=== PATIENT | male | born 1980 | race Caucasian/White ===

== ENCOUNTER 2020-11-02 19:13 | Inpatient (IN) | payer MEDICARE, MEDICAID, SELFPAY ==
[2020-11-02 19:13] VITALS: BP 113/66; PULSE 78; RESP 18; TEMP 35.2; O2SAT 97; BMI 31.2
--- NOTE | 2020-11-02 19:51 | CT_ITS ---
HISTORY: abd pain TECHNIQUE: Helically acquired images were obtained of the abdomen and pelvis following the intravenous administration of 100 ML of Isovue-370 Iodinated contrast. 2D reformats. No oral contrast was administered. A radiation dose optimization technique was used for this scan. COMPARISON: March 06, 2017 FINDINGS: # of images incl. paperwork: 413 LUNG BASES: Scarring is minimal within the root left lung base and about the diaphragmatic hernia in this patient that has had a large gastric hernia and left hemidiaphragm repair CT abdomen: Bones are unremarkable. The gallbladder is distended. There is mild intra-and extrahepatic biliary ductal dilatation. Just above the pancreatic head the common bile duct is dilated to 8 mm. Liver, spleen, pancreas, and adrenal glands, are normal. The kidneys are normal. The aorta is normal. CT pelvis: No ascites is present. The appendix is normal. Series 2 image 77. The prostate gland is not enlarged. The bladder is decompressed. Bowel-gas pattern is normal. CT/Abdomen/Pelvis W IV Cont ONLY IMPRESSION: Previous left hemidiaphragm repair. Some gastric stapling. Distended gallbladder with biliary ductal dilatation. Individualized dose optimization techniques were used for this CT. at 2117 Reported and signed by: Gonzalo Schwartz MD Electronically Signed: Gonzalo Schwartz MD at 21:16 EDT Tel , Service support ,
--- NOTE | 2020-11-02 19:53 | ED.VISSUMM ---
- ER Visit Summary Date of Service: 11/02/20 Chief Complaint: Epigastric abdominal pain History of Present Illness: The patient is a 40 M Struve hiatal hernia with 3 prior surgeries and a prior episode where he was nausea and vomiting to the point that his hiatal hernia slid up and was chest and causing collapse of his lung. He is also had esophageal dilatation. Patient has chronic abdominal pain all the time. It worsened tonight associated with more nausea and vomiting. He denies any fever. He denies any hematemesis or melena. He denies any chills or dysuria. This is the same pain he normally has just worse. Physical Examination: Middle-aged male complaining of pain in his epigastric region. Vital signs are stable and afebrile. H EENT exam unremarkable. Neck nontender. Lungs clear to auscultation bilaterally. Heart regular rhythm no murmur. Abdomen soft nondistended normal bowel sounds. Tender in epigastric region. Right upper and right lower quadrants are unremarkable. No signs of obstruction. Soft with positive bowel sounds. Moving all 4 extremities. No edema. Neurologically is awake alert with no focal motor deficits. Test Results: CBC showed an elevated white count of 14,000. Hemoglobin 13 no bands chemistries unremarkable normal creatinine gap. Liver enzymes elevated lipase 307 amylase normal at 84. CT abdomen pelvis with IV contrast shows left hemidiaphragm repair with prior gastric stapling there is an acutely distended gallbladder with biliary ductal dilatation. Ultrasound is currently pending. Emergency Department Course and Treatment: Patient with epigastric abdominal pain with significant pathology in the past including pancreatitis and issues with hiatal hernia. Treated with IV fentanyl and Zofran. He is allergic to Dilaudid and morphine. Labs and CT being obtained. Treatment Plan: Patient received additional doses of medication and was started on IV Zosyn. Spoken to general surgery Dr. Cosme Zapata and he is in the emergency department evaluating the patient at this time. Ultrasound is pending. Disposition: admission Impression: Acute epigastric abdominal pain Acute biliary biliary ductal dilatation with elevated liver enzymes This note was generated with [employer] dictation software. It may contain incorrect words, spelling, and punctuation that were not noted in review of the chart prior to signing ED Disposition - Plan for ED Patient: Referrals: Ac Johnson III, MD [Primary Care Provider] -
[2020-11-02 20:06] LABS: Absolute Neutrophil Count 12.1 X10^3/uL (2.0-7.7); Basophil# 0.03 X10^3/uL; Basophil% 0.2 % (0-1); Eosinophil# 0.02 X10^3/uL; Eosinophils% 0.1 % (0-5); Hematocrit 40.1 % (40-54); Hemoglobin 13.9 g/dL (13.0-16.5); Lymphocyte % 8.4 % (19-41); Mean Corp Hgb Conc 34.7 g/dL (32-36); Mean Corpuscular Hgb 31.7 pg (27.0-32.0); Mean Corpuscular Volume 91.3 fL (80-94); Mean Platelet Vol. 10.6 fl (6.2-12.0); NRBC Flagged by Analyzer 0 % (0-5); Neutrophil # 12.06 X10^3/uL (2.7-7.7); Platelet Count 270 K/mm3 (150-450); RBC Distribution Width CV 11.9 % (11.6-14.6); RBC Distribution Width SD 40.2 fl (35.1-43.9); Red Blood Count 4.39 M/mm3 (4.6-6.2); White Blood Count 14.4 K/mm3 (4.4-11.0)
[2020-11-02] MEDS: 0.9% Normal Saline 1,000 ML 1000 ML IV (20:10)
[2020-11-02] MEDS: fentaNYL 100 MCG/2 ML Ampul 50 MCG IV ×2 (20:11→21:54)
[2020-11-02] MEDS: Ondansetron 4 MG/2 ML Vial IV (20:11)
[2020-11-02 20:28] LABS: ALB/GLOB Ratio 1.1 RATIO (0.9-2.4); AST(SGOT) 829 U/L (15-37); Alanine Aminotransfer ALT/SGPT 455 U/L (16-61); Albumin, Serum 3.9 g/dL (3.2-5.0); Alkaline Phosphatase 134 U/L (45-117); Amylase 84 U/L (25-115); Anion Gap 6 (5-15); BUN 13 mg/dL (7-18); BUN/Creat Ratio 12.3 RATIO (10-20); Chloride 107 mmol/L (98-107); Creatinine, Serum 1.06 mg/dL (0.70-1.30); EST Glomerular Filtration Rate 83 mL/min (>60); Est Glom Filt Rate - Afr Amer 100 mL/min (>60); Estimated Creatinine Clearance 81.39 ml/min; Globulin 3.4 g/dL (2.2-4.2); Glucose 154 mg/dL (74-106); Lipase 307 U/L (73-393); Potassium 4.2 mmol/L (3.5-5.1); Protein, Total 7.3 g/dL (6.4-8.2); Sodium Level 140 mmol/L (136-145)
--- NOTE | 2020-11-02 21:50 | US_ITS ---
HISTORY: abd pain and elevated liver enzymes TECHNIQUE: Castellanos scale and color doppler imaging was performed of the pancreas, liver, and gallbladder. COMPARISON: CT scan of the abdomen and pelvis from just over an hour earlier. FINDINGS: # of images incl. paperwork: 134 Liver is normal in size and appearance. Multiple gallstones are present within the gallbladder lumen. The gallbladder is distended. Trace pericholecystic fluid No gallbladder wall thickening or biliary dilatation. Gallbladder wall measures 3 mm. Common bile duct measures 5 mm. Choledocholithiasis is suspected Tenderness upon insonation the gallbladder. Visualized pancreas is normal in appearance. Right kidney is normal in size and appearance. Hepatopedal flow is present within the central portal vein. US/Gallbladder IMPRESSION: Gallstones, pericholecystic fluid, and pain upon insonation of the gallbladder consistent with acute cholecystitis. at 2256 Reported and signed by: Gonzalo Schwartz MD Electronically Signed: Gonzalo Schwartz MD at 22:55 EDT Tel , Service support ,
[2020-11-02 21:55] VITALS: BP 108/69; PULSE 66; RESP 16; O2SAT 98
--- NOTE | 2020-11-02 22:38 | PCM.HP.STD ---
Problem List (1) Obstructive jaundice Status: Acute (2) Cholecystitis Status: Acute History of Present Illness Date of Admission: 11/02/20 The patient is a 40 year old M reports he has been having abdominal pain for years. He says that this evening he started having nausea and vomiting and worsening of pain and feeling like it was turned up to 11. The pain is in the epigastric region does not radiate. He is having nausea and vomiting with no blood in his vomit. The patient denies any fevers or chills. The patient also is scheduled for EGD soon due to dysphagia. Patient has had multiple gastric surgeries in the past Past Medical History Past Medical History (Chronic Problems): Chronic Problems Depression (Chronic) Hypertension (Chronic) Hiatal hernia (Chronic) Allergies bee venom protein (honey bee) Allergy (Verified 11/02/20 19:15) Anaphylaxis hydromorphone [From Dilaudid] Allergy (Verified 11/02/20 19:15) Hives morphine Allergy (Verified 11/02/20 19:15) Hives Home Medications: Ambulatory Orders Medication Instructions Recorded Albuterol Sulfate [Ventolin Hfa] 2 inhaler PO PRN PRN 03/06/17 Escitalopram Oxalate [Lexapro] 20 mg PO DAILY 03/06/17 Gabapentin [Neurontin] 600 mg PO TIDCM 03/06/17 [place] 10-325 Tablet 1 tab PO Q6H PRN 03/06/17 Pantoprazole Sodium [Protonix] 40 mg PO DAILY 03/06/17 Tizanidine HCl [Zanaflex] 4 mg PO Q8H PRN 03/06/17 cycloBENZAPRine HCl [Flexeril] 10 mg PO BID PRN 03/06/17 traZODone [Desyrel] 150 mg PO QHS 03/06/17 Surgical History: - - Hiatal hernia surgery with revision. Smoking Status: Former smoker - *Family History Maternal History Items: - - Unable to obtain as the patient is currently confused. Review of Systems Constitutional: Denies: Anorexia, Chills, Fever HEENT: Reports: Dysphasia Cardiovascular: Denies: Chest Pain Respiratory: Denies: Cough, Shortness of Breath Gastrointestinal: Reports: Abdominal Pain, Nausea, Vomiting. Denies: Constipation, Diarrhea Genitourinary: Denies: Frequency Skin: Denies: Jaundice Hematologic/ Lymphatic: Reports: Anemia VTE Information - Inpt Only VTE Present on Admission: No VTE Mechan Device Prophylaxis: SCD's - Physical Exam Vitals/I&O's: Vital Signs Temp Pulse Resp BP Pulse Ox 95.3 F L 66 16 108/69 98 11/02/20 19:13 11/02/20 21:55 11/02/20 21:55 11/02/20 21:55 11/02/20 21:55 Oxygen Delivery Method Room Air Weight: 188 lb Body Mass Index (BMI) 31.2 Intake and Output for Last 24 Hours 10/31/20 11/01/20 11/02/20 23:59 23:59 23:59 Intake Total 1000 / 1000 Balance 1000 / 1000 General: Alert, Oriented x3 Neck: No JVD Lungs: Normal air movement Cardiovascular: Regular rate, Regular Rhythm Abdomen: Soft, Non-Distended, Tender - Tender in the epigastric region with no guarding or rebound Skin: No rashes Musculoskeletal: No Muscle Wasting Neurological: Cranial nerves II-XII grossly intact Psych/Mental Status: Normal Affect Laboratory Results 11/02/20 20:00: WBC 14.4 H, RBC 4.39 L, Hgb 13.9, Hct 40.1, MCV 91.3, MCH 31.7, MCHC 34.7, RDW Std Deviation 40.2, RDW Coeff of Marisel 11.9, Plt Count 270, MPV 10.6, Immature Gran % (Auto) 0.300, Neut % (Auto) 84.0 H, Lymph % (Auto) 8.4 L, Harmon % (Auto) 7.0, Eos % (Auto) 0.1, Baso % (Auto) 0.2, Absolute Neuts (auto) 12.1 H, Absolute Lymphs (auto) 1.20, Nucleated RBC % 0 11/02/20 20:00: Sodium 140, Potassium 4.2, Chloride 107, Carbon Dioxide 27.0, Anion Gap 6, BUN 13, Creatinine 1.06, Estim Creat Clear Calc 81.39, Est GFR (MDRD) Af Amer 100, Est GFR (MDRD) Non-Af 83, BUN/Creatinine Ratio 12.3, Glucose 154 H, Calcium 9.0, Total Bilirubin 1.50 H, AST 829 H, ALT 455 H, Alkaline Phosphatase 134 H, Total Protein 7.3, Albumin 3.9, Globulin 3.4, Albumin/Globulin Ratio 1.1, Amylase 84, Lipase 307 Clinical Impression(s) from Imaging Studies Abdomen/Pelvis CT 11/02/20 19:51 IMPRESSION: Previous left hemidiaphragm repair. Some gastric stapling. Distended gallbladder with biliary ductal dilatation. Individualized dose optimization techniques were used for this CT. at 2117 Reported and signed by: Gonzalo Schwartz MD Electronically Signed: Gonzalo Schwartz MD at 21:16 EDT Tel , Service support , Current Medications Piperacillin Sod/Tazobactam (Sod 4.5 gm/ Sodium Chloride) 100 mls @ 200 mls/hr IV X1 ONE Stop: 11/02/20 22:42 Assessment/Plan All Active Problems Obstructive jaundice (Acute) Cholecystitis (Acute) Intractable nausea and vomiting (Acute) Pancreatitis, acute (Acute) 40-year-old male with obstructive jaundice and cholelithiasis with possible acute cholecystitis 1. The patient has elevated liver enzymes as well as an elevated white count. Ultrasound revealed thickened gallbladder wall with gallstones. It also appeared that he had gallstones in the common bile duct. The patient did have dilation of the common duct on CT scan. I believe the patient has choledocholithiasis with obstruction and possible acute cholecystitis. I discussed this with him in detail. I discussed this with his as well. I went over the imaging and the labs with them both. 2. The patient has a history of several gastric surgeries due to incarcerated hiatal hernia. The patient has had a sleeve gastrectomy. The patient is scheduled for EGD with dilation soon due to dysphagia. Apparently he had a recent swallow study showing stenosis. I discussed admitting the patient and starting him on antibiotics and plan for EGD and ERCP tomorrow. I discussed EGD and possible dilation as well as ERCP with possible stent placement. I discussed the risks of ERCP and EGD including but not limited to bleeding, infection, perforation of the esophagus, perforation of bowel or bile duct, pancreatitis. The patient understands the risks and is when to proceed. 3. I will admit the patient and start his home occasions as well as antibiotics. I did discuss the need for subsequent laparoscopic cholecystectomy. Cosme Zapata MD Pager: [facility] [address] [place] [address] [address] [phone] Office:
[2020-11-02 22:42] VITALS: BP 109/66; PULSE 75; RESP 16; TEMP 36.8; O2SAT 95
[2020-11-02 23:14] VITALS: BMI 31.4
[2020-11-02 23:24] VITALS: BMI 31.4
[2020-11-02] MEDS: fentaNYL 100 MCG/2 ML Ampul IV (23:44)
[2020-11-02] MEDS: 0.9% Normal Saline 1,000 ML 125 ML IV (23:46)
[2020-11-02 23:47] VITALS: BP 114/82; PULSE 75; RESP 16; TEMP 36.5; O2SAT 97
[2020-11-03] VITALS (16 sets, daily range): BP systolic 93–122; BP diastolic 51–80; PULSE 54–85; RESP 16–18; TEMP 36–36.8; O2SAT 92–98; BMI 31.4
[2020-11-03] MEDS: fentaNYL 100 MCG/2 ML Ampul IV ×7 (02:10→20:19)
--- NOTE | 2020-11-03 04:10 | EKG12_ITS ---
Test Reason : AM EKG Blood Pressure : / mmHG Vent. Rate : 057 BPM Atrial Rate : 057 BPM P-R Int : 174 ms QRS Dur : 096 ms QT Int : 424 ms P-R-T Axes : 017 063 027 degrees QTc Int : 412 ms Sinus bradycardia Otherwise normal ECG When compared with ECG of 06-MAR-2017 19:33, Vent. rate has decreased BY 90 BPM Criteria for Septal infarct are no longer Present ST no longer depressed in Inferior leads T wave amplitude has increased in Lateral leads Confirmed by STARR DOUGLAS, ANANYA ([id number]), editor department DIYA HERRERA ([id number]) on 11/05/2020 8:30:14 AM Referred By: [facility] Confirmed By:KAMERON CLEMENTS MD
[2020-11-03] MEDS: Ondansetron 4 MG/2 ML Vial IV ×2 (05:13→15:58)
[2020-11-03 07:45] LABS: Absolute Lymphocyte Count 1.54 X10^3/uL (0.83-4.51); Absolute Neutrophil Count 3.2 X10^3/uL (2.0-7.7); Basophil# 0.03 X10^3/uL; Basophil% 0.5 % (0-1); Eosinophil# 0.09 X10^3/uL; Eosinophils% 1.6 % (0-5); Hematocrit 37.6 % (40-54); Hemoglobin 12.3 g/dL (13.0-16.5); Lymphocyte # 1.54 X10^3/ul (0.83-4.51); Lymphocyte % 27.7 % (19-41); Mean Corp Hgb Conc 32.7 g/dL (32-36); Mean Corpuscular Hgb 30.4 pg (27.0-32.0); Mean Corpuscular Volume 92.8 fL (80-94); Mean Platelet Vol. 11.1 fl (6.2-12.0); Monocyte% 12.6 % (0-10); NRBC Flagged by Analyzer 0 % (0-5); Neutrophil # 3.18 X10^3/uL (2.7-7.7); Neutrophil % 57.4 % (47-70); Platelet Count 232 K/mm3 (150-450); RBC Distribution Width CV 12.4 % (11.6-14.6); RBC Distribution Width SD 42.9 fl (35.1-43.9); Red Blood Count 4.05 M/mm3 (4.6-6.2); White Blood Count 5.6 K/mm3 (4.4-11.0)
[2020-11-03 08:28] LABS: ALB/GLOB Ratio 1.2 RATIO (0.9-2.4); AST(SGOT) 1239 U/L (15-37); Alanine Aminotransfer ALT/SGPT 941 U/L (16-61); Albumin, Serum 3.4 g/dL (3.2-5.0); Alkaline Phosphatase 141 U/L (45-117); Anion Gap 5 (5-15); BUN 8 mg/dL (7-18); BUN/Creat Ratio 8.4 RATIO (10-20); Calcium,Total 8.7 mg/dL (8.5-10.1); Chloride 109 mmol/L (98-107); Creatinine, Serum 0.95 mg/dL (0.70-1.30); EST Glomerular Filtration Rate 93 mL/min (>60); Est Glom Filt Rate - Afr Amer 113 mL/min (>60); Estimated Creatinine Clearance 90.81 ml/min; Globulin 2.9 g/dL (2.2-4.2); Glucose 88 mg/dL (74-106); Lipase 200 U/L (73-393); Potassium 4.2 mmol/L (3.5-5.1); Protein, Total 6.3 g/dL (6.4-8.2); Sodium Level 143 mmol/L (136-145)
[2020-11-03] MEDS: 0.9% Normal Saline 1,000 ML 125 ML IV ×2 (09:32→14:50)
--- NOTE | 2020-11-03 10:27 | CASEMGMT ---
RN MARY ANNE TECHNICIAN SUPPORT ENGINEER CM to room to meet with patient for initial transition planning/care coordination assessment. RN MARY ANNE introduced self and role at [facility]. Pt voices understanding and consents to assessment at this time. Pt resting in bed in no distress at this time. Pt is A/O at this time and answers all questions appropriately. Care providers, pharmacy, and demographics verified/updated at this time. PCP: Dr Ac Johnson Specialists: Dr Cecilio Melendez--gastroenterology @ [facility] [address] [place] Preferred Pharmacy: [facility] Insurance: [facility], Medicaid Crossover Prescription Benefit: Yes LNOK: , Shelbie Living Arrangements: Lives w/his , Shelbie, and 8-yr-old dtr. Independent w/ADL's. Pt does most home mgmt tasks. Transportation: Pt states does most of the driving. DME: Uses a cane occasionally. Denies need for further DME HHC/SNF: No hx of SNF. Did have HHC a couple of yrs ago after surgery. Does not remember name of agency. Pt wishes to return home and states has no concerns with going home at time of discharge. Pt states does not smoke or drink ETOH. CM to follow for any discharge planning/needs. Pt voices no concerns/needs at this time. Advised pt to ask for CM if any questions/concerns/needs arise. Voices understanding. PLAN: Home Saqib HAYES RN, CM
--- NOTE | 2020-11-03 12:05 | RAD_ITS ---
STUDY: ERCP. REASON FOR EXAM: Male, 40 years old. PAIN FLUOROSCOPY TIME (if supplied): ( 140 seconds ) minutes/seconds. Fluoroscopy images were obtained. TECHNIQUE: An ERCP was performed by the surgeon. Imaging was submitted. COMPARISON: None. FINDINGS: A stent is placed within the common bile duct. RAD/ERCP Biliary Only IMPRESSION: A stent is placed within the common bile duct. Electronically Signed: Hansel Florentino MD at 13:14 EDT , Service support ,
[2020-11-03] MEDS: Lactated Ringers 1,000 ML 100 ML IV (12:10)
--- NOTE | 2020-11-03 13:06 | OP.CCLET_ITS ---
11/03/2020 Ac Johnson [address] [place] [address] Re : ERCP procedure for Tre Minh Dear Dr. Johnson This procedure was performed on Tuesday, November 03, 2020. My impressions and recommendations are as follows: Impressions : - The major papilla appeared normal. - A biliary sphincterotomy was performed. - The biliary tree was swept and nothing was found. Recommendations : - [facility]. My findings are described in the full procedure note, which is enclosed. If I can be of further assistance, please feel free to contact me at Doctor phone number(s): , Work: . Sincerely, Cosme Zapata MD 11/03/2020 12:48:03 PM This report has been signed electronically.
--- NOTE | 2020-11-03 13:06 | OP.ERCP_ITS ---
Patient Name: Tre Wilkinson Procedure Date: 11/03/2020 10:44 AM Date of : 1980 Age: 40 Procedure: ERCP Indications: Abdominal pain in the right upper quadrant, Abnormal CT of the GI tract Providers: Cosme Zapata MD Medicines: General Anesthesia Patient Profile: This is a 40 year old male. Refer to note in patient chart for documentation of history and physical. Complications: No immediate complications. Procedure: Pre-Anesthesia Assessment: - Prior to the procedure, a History and Physical was performed, and patient medications and allergies were reviewed. The patient's tolerance of previous anesthesia was also reviewed. The risks and benefits of the procedure and the sedation options and risks were discussed with the patient. All questions were answered, and informed consent was obtained. Prior Anticoagulants: The patient has taken no previous anticoagulant or antiplatelet agents. After reviewing the risks and benefits, the patient was deemed in satisfactory condition to undergo the procedure. After obtaining informed consent, the scope was passed under direct vision. Throughout the procedure, the patient's blood pressure, pulse, and oxygen saturations were monitored continuously. The gastroscope was introduced through the mouth, and advanced to the second part of duodenum. The duodenoscope was introduced through the mouth, and advanced to the second part of duodenum. After obtaining informed consent, the scope was passed under direct vision. Throughout the procedure, the patient's blood pressure, pulse, and oxygen saturations were monitored continuously.The upper GI endoscopy was accomplished without difficulty. The patient tolerated the procedure well. Scope In: 12:12:22 PM Scope Out: 12:25:25 PM Total Procedure Duration Time 0 hours 13 minutes 3 seconds Findings: The major papilla was normal. A 0.035 inch x 260 cm straight Dreamwire was passed into the biliary tree. The sphincterotome was passed over the guidewire and the bile duct was then deeply cannulated. Contrast was injected. Bile ducts were not dilated and cystic duct was patent with filling of gallbladder. Biliary sphincterotomy was made with a monofilament sphincterotome using ERBE electrocautery. There was no post-sphincterotomy bleeding. The biliary tree was swept with a 12 mm balloon starting at the bifurcation. Nothing was found. Impression: - The major papilla appeared normal. - A biliary sphincterotomy was performed. - The biliary tree was swept and nothing was found. Recommendation: - Return [facility] to [facility] for ongoing care. Procedure Code(s): --- Professional --- 43692, Endoscopic retrograde cholangiopancreatography (ERCP); with sphincterotomy/papillotomy Diagnosis Code(s): --- Professional --- R10.11, Right upper quadrant pain R93.3, Abnormal findings on diagnostic imaging of other parts of digestive tract CPT copyright 2017 [employer]. All rights reserved. The codes documented in this report are preliminary and upon cpc coder review may be revised to meet current compliance requirements. Cosme Zapata MD 11/03/2020 12:48:03 PM This report has been signed electronically. Number of Addenda: 0 Note Initiated On: 11/03/2020 10:44 AM
[2020-11-03] MEDS: Escitalopram Oxalate 20 MG Tablet PO (14:52)
[2020-11-03] MEDS: 0.9% Saline Lock 10 ML Syringe IV (20:20)
--- NOTE | 2020-11-03 23:10 | NURSING ---
Received pt from [facility].
[2020-11-03] MEDS: cycloBENZAPRine HCl 10 MG Tablet PO (23:44)
[2020-11-04] VITALS (8 sets, daily range): BP systolic 102–118; BP diastolic 59–76; PULSE 53–72; RESP 16–18; TEMP 36.3–36.8; O2SAT 95–100
[2020-11-04] MEDS: fentaNYL 100 MCG/2 ML Ampul IV ×2 (04:41→08:54)
[2020-11-04 07:07] LABS: Absolute Lymphocyte Count 2.09 X10^3/uL (0.83-4.51); Absolute Neutrophil Count 5.2 X10^3/uL (2.0-7.7); Basophil# 0.02 X10^3/uL; Basophil% 0.2 % (0-1); Eosinophil# 0.03 X10^3/uL; Eosinophils% 0.4 % (0-5); Hematocrit 36.9 % (40-54); Lymphocyte # 2.09 X10^3/ul (0.83-4.51); Lymphocyte % 25.7 % (19-41); Mean Corp Hgb Conc 32.5 g/dL (32-36); Mean Corpuscular Hgb 30.5 pg (27.0-32.0); Mean Corpuscular Volume 93.7 fL (80-94); Monocyte# 0.71 X10^3/uL; Monocyte% 8.7 % (0-10); NRBC Flagged by Analyzer 0 % (0-5); Neutrophil # 5.24 X10^3/uL (2.7-7.7); Neutrophil % 64.6 % (47-70); Platelet Count 227 K/mm3 (150-450); RBC Distribution Width CV 12.2 % (11.6-14.6); Red Blood Count 3.94 M/mm3 (4.6-6.2); White Blood Count 8.1 K/mm3 (4.4-11.0)
[2020-11-04 07:41] LABS: ALB/GLOB Ratio 1.2 RATIO (0.9-2.4); AST(SGOT) 291 U/L (15-37); Alanine Aminotransfer ALT/SGPT 606 U/L (16-61); Albumin, Serum 3.2 g/dL (3.2-5.0); Alkaline Phosphatase 159 U/L (45-117); Anion Gap 4 (5-15); BUN 6 mg/dL (7-18); BUN/Creat Ratio 6.3 RATIO (10-20); Calcium,Total 8.7 mg/dL (8.5-10.1); Chloride 107 mmol/L (98-107); Creatinine, Serum 0.96 mg/dL (0.70-1.30); EST Glomerular Filtration Rate 93 mL/min (>60); Est Glom Filt Rate - Afr Amer 113 mL/min (>60); Estimated Creatinine Clearance 89.87 ml/min; Globulin 2.7 g/dL (2.2-4.2); Glucose 90 mg/dL (74-106); Potassium 3.9 mmol/L (3.5-5.1); Protein, Total 5.9 g/dL (6.4-8.2); Sodium Level 139 mmol/L (136-145)
[2020-11-04] MEDS: 0.9% Normal Saline 1,000 ML 125 ML IV (08:39)
[2020-11-04] MEDS: Ondansetron 4 MG/2 ML Vial IV (08:54)
[2020-11-04] MEDS: Escitalopram Oxalate 20 MG Tablet PO (08:55)
[2020-11-04] MEDS: 0.9% Saline Lock 10 ML Syringe IV (08:55)
--- NOTE | 2020-11-04 10:01 | PCM.PN.SRG ---
Patient Problems: Active and Suspected Problems Obstructive jaundice (Acute) Cholecystitis (Acute) Subjective: Patient is reporting ongoing abdominal pain but he says it has decreased somewhat. No nausea or vomiting overnight. - Physical Exam Vitals/I&O's: Vital Signs Temp Pulse Resp BP Pulse Ox 97.4 F L 71 18 113/73 98 11/04/20 08:32 11/04/20 08:32 11/04/20 08:32 11/04/20 08:32 11/04/20 08:32 Oxygen Flow Rate (L/min) 2 Oxygen Delivery Method Room Air Weight: 188 lb 11.451 oz Body Mass Index (BMI) 31.4 Intake and Output for Last 24 Hours 11/02/20 11/03/20 11/04/20 23:59 23:59 23:59 Intake Total 1100 / 1100 3986.67 / 3986.67 150 / 150 Output Total 525 / 525 Balance 1100 / 1100 3986.67 / 3986.67 -375 / -375 General: Alert, Oriented x3 Lungs: Normal air movement Abdomen: Soft, Non-Distended, Tender - Tender in the right upper quadrant Microbiology Past 72 Hours 11/03/20 00:08 Nasal Secretion SARS-CoV-2 Antigen (Rapid) - Final Laboratory Results 11/04/20 06:35: WBC 8.1, RBC 3.94 L, Hgb 12.0 L, Hct 36.9 L, MCV 93.7, MCH 30.5, MCHC 32.5, RDW Std Deviation 42.0, RDW Coeff of Marisel 12.2, Plt Count 227, MPV 11.0, Immature Gran % (Auto) 0.400, Neut % (Auto) 64.6, Lymph % (Auto) 25.7, [place] % (Auto) 8.7, Eos % (Auto) 0.4, Baso % (Auto) 0.2, Absolute Neuts (auto) 5.2, Absolute Lymphs (auto) 2.09, Nucleated RBC % 0 11/04/20 06:35: Sodium 139, Potassium 3.9, Chloride 107, Carbon Dioxide 28.0, Anion Gap 4 L, BUN 6 L, Creatinine 0.96, Estim Creat Clear Calc 89.87, Est GFR (MDRD) Af Amer 113, Est GFR (MDRD) Non-Af 93, BUN/Creatinine Ratio 6.3 L, Glucose 90, Calcium 8.7, Total Bilirubin 2.30 H, AST 291 H, ALT 606 H, Alkaline Phosphatase 159 H, Total Protein 5.9 L, Albumin 3.2, Globulin 2.7, Albumin/Globulin Ratio 1.2 Current Medications Albuterol Sulfate (Albuterol 2.5 Mg/3 Ml Vial.Neb.) 2.5 mg INHALATION Q4H PRN PRN Reason: Asthma Cyclobenzaprine HCl (Cyclobenzaprine Hcl 10 Mg Tablet) 10 mg PO BID PRN PRN Reason: SPASMS Last Admin: 11/03/20 23:44 Dose: 10 mg Documented by: Escitalopram Oxalate (Escitalopram Oxalate 20 Mg Tablet) 20 mg PO DAILY [facility] Last Admin: 11/04/20 08:55 Dose: 20 mg Documented by: Fentanyl Citrate (Fentanyl 100 Mcg/2 Ml Ampul) 50 - 100 mcg IV Q2H PRN PRN PRN Reason: Pain Score 4-10 Last Admin: 11/04/20 08:54 Dose: 100 mcg Documented by: Sodium Chloride () 1,000 mls @ 125 mls/hr IV .Q8H [facility] Last Admin: 11/04/20 08:39 Dose: 125 mls/hr Documented by: Piperacillin Sod/Tazobactam (Sod 3.375 gm/ Sodium Chloride) 50 mls @ 12.5 mls/hr IV Q8 [facility] Last Admin: 11/04/20 06:22 Dose: 12.5 mls/hr Documented by: Pantoprazole Sodium 40 mg/ (Sodium Chloride) 110 mls @ 330 mls/hr IV Q24 [facility] Last Infusion: 11/03/20 09:49 Dose: Infused Documented by: Ondansetron HCl (Ondansetron 4 Mg/2 Ml Vial) 4 mg IV Q6H PRN PRN PRN Reason: NAUSEA Last Admin: 11/04/20 08:54 Dose: 4 mg Documented by: Sodium Chloride (0.9% Saline Lock 10 Ml Syringe) 10 - 40 ml IV UD PRN PRN Reason: SALINE FLUSH Last Admin: 11/04/20 08:55 Dose: 20 ml Documented by: Medical Necessity - Tobacco Use Smoking Status: Former smoker Assessment/Plan All Active Problems Obstructive jaundice (Acute) Cholecystitis (Acute) Intractable nausea and vomiting (Acute) Pancreatitis, acute (Acute) 40-year-old male with increased liver enzymes 1. The patient had increasing liver enzymes yesterday and underwent ERCP. No obstruction or stones were noted on the ERCP and his bile ducts were of normal size. Cystic duct was patent and there was filling of the gallbladder. Ultrasound of the gallbladder showed normal gallbladder wall with stones. I believe that the patient may have acute hepatitis and hepatitis panel is pending. His LFTs were a little bit higher than I would expect for obstruction. There is no obstruction noted on ERCP yesterday and I will hold off on surgery until hepatitis panel is resulted to see if the patient does not fact have acute hepatitis. If not, I may consider laparoscopic cholecystectomy. Cosme Zapata MD Pager: [facility] [address] [place] [address] Office:
[2020-11-04 11:11] LABS: HEPATITIS B SURFACE AG Negative (Negative); Hepatitis A IgM Antibody Negative (Negative); Hepatitis B Core AB IgM Negative (Negative)
[2020-11-04] MEDS: oxyCODONE 5 MG Tablet 10 MG PO ×2 (13:07→17:17)
--- NOTE | 2020-11-04 14:02 | NURSING ---
unable to start blood infusion due to pt going down for mri at 15:30.
--- NOTE | 2020-11-04 16:15 | DCINST_ITS ---
Discharge Diet: Light diet - advance as tolerated Discharge Activity: Return to Normal Activity Allergies/Adverse Reactions: Allergies bee venom protein (honey bee) Allergy (Verified 11/02/20 23:20) Anaphylaxis hydromorphone [From Dilaudid] Allergy (Verified 11/02/20 23:20) Hives morphine Allergy (Verified 11/02/20 23:20) Hives Medications to take at Discharge Albuterol Sulfate [Ventolin Hfa] 2 inhaler PO PRN PRN 03/06/17 Escitalopram Oxalate [Lexapro] 20 mg PO DAILY 03/06/17 Pantoprazole Sodium [Protonix] 40 mg PO DAILY 03/06/17 cycloBENZAPRine HCl [Flexeril] 10 mg PO BID PRN 03/06/17 Primary Care Physician: Ac Johnson III, MD [Primary Care Provider] - Test Results: Test results from this visit will be discussed in further detail at your follow- up appointment, if applicable. Please Follow Up With: Cosme Zapata MD - [phone] When: 1 week
--- NOTE | 2020-11-04 16:16 | DS.PCM_ITS ---
Discharge Date and Diagnosis - Problem List Patient Problems: Active and Suspected Problems Obstructive jaundice (Acute) Cholecystitis (Acute) Date of Admission: 11/02/20 Date of Discharge: 11/04/20 - Primary Discharge Diagnosis Acute Problems: Active Problems Obstructive jaundice (Acute) Cholecystitis (Acute) - Secondary Discharge Diagnosis Chronic Problems: Chronic Problems Depression (Chronic) Hypertension (Chronic) Hiatal hernia (Chronic) Hospital Course and Treatment Operations: ERCP Summary of Care Provided: The patient is a 40 year old M who presented with chronic abdominal pain, nausea, vomiting. Patient had a CT scan of the ab/pel which demonstrated IMPRESSION: Previous left hemidiaphragm repair. Some gastric stapling. Distended gallbladder with biliary ductal dilatation. Individualized dose optimization techniques were used for this CT. A gallbladder ultrasound was obtained which demonstrated IMPRESSION: Gallstones, pericholecystic fluid, and pain upon insonation of the gallbladder consistent with acute cholecystitis. Dr. Zapata performed an ERCP on 11/03 which showed Findings: The major papilla was normal. A 0.035 inch x 260 cm straight Dreamwire was passed into the biliary tree. The sphincterotome was passed over the guidewire and the bile duct was then deeply cannulated. Contrast was injected. Bile ducts were not dilated and cystic duct was patent with filling of gallbladder. Biliary sphincterotomy was made with a monofilament sphincterotome using ERBE electrocautery. There was no post-sphincterotomy bleeding. The biliary tree was swept with a 12 mm balloon starting at the bifurcation. Nothing was found. Patient's liver enzymes were significantly elevated. Hepatitis panel was ordered. Upon discharge, patient noted abdominal pain had improved from admission. His liver enzymes were improving. Hepatitis panel is still pending. Patient had tolerated clear liquids and was requesting to be discharged. Patient is recommended to follow-up with Dr. Zapata in 1 week. If the Hepatitis pederson el is positive, patient will be directed to appropriately treat. If the Hepatitis panel is negative, Dr. Zapata will discuss possibly removing the patient's gallbladder. Patient Problems: Active and Suspected Problems Obstructive jaundice (Acute) Cholecystitis (Acute) - Physical Exam Vitals/I&O's: Vital Signs Temp Pulse Resp BP Pulse Ox 98.3 F 72 18 118/76 100 11/04/20 13:30 11/04/20 14:00 11/04/20 13:30 11/04/20 13:30 11/04/20 13:30 Oxygen Flow Rate (L/min) 2 Oxygen Delivery Method Room Air Weight: 188 lb 11.451 oz Body Mass Index (BMI) 31.4 Intake and Output for Last 24 Hours 11/02/20 11/03/20 11/04/20 23:59 23:59 23:59 Intake Total 1100 / 1100 3986.67 / 3986.67 310 / 310 Output Total 525 / 525 Balance 1100 / 1100 3986.67 / 3986.67 -215 / -215 General: Alert, Oriented x3, Cooperative Abdomen: - - pain out of proportion on abdominal exam Microbiology Past 72 Hours 11/03/20 00:08 Nasal Secretion SARS-CoV-2 Antigen (Rapid) - Final Laboratory Results 11/04/20 06:35: WBC 8.1, RBC 3.94 L, Hgb 12.0 L, Hct 36.9 L, MCV 93.7, MCH 30.5, MCHC 32.5, RDW Std Deviation 42.0, RDW Coeff of Marisel 12.2, Plt Count 227, MPV 11.0, Immature Gran % (Auto) 0.400, Neut % (Auto) 64.6, Lymph % (Auto) 25.7, [place] % (Auto) 8.7, Eos % (Auto) 0.4, Baso % (Auto) 0.2, Absolute Neuts (auto) 5.2, Absolute Lymphs (auto) 2.09, Nucleated RBC % 0 11/04/20 06:35: Sodium 139, Potassium 3.9, Chloride 107, Carbon Dioxide 28.0, Anion Gap 4 L, BUN 6 L, Creatinine 0.96, Estim Creat Clear Calc 89.87, Est GFR (MDRD) Af Amer 113, Est GFR (MDRD) Non-Af 93, BUN/Creatinine Ratio 6.3 L, Glucose 90, Calcium 8.7, Total Bilirubin 2.30 H, AST 291 H, ALT 606 H, Alkaline Phosphatase 159 H, Total Protein 5.9 L, Albumin 3.2, Globulin 2.7, Albumin/Globulin Ratio 1.2 Current Medications Albuterol Sulfate (Albuterol 2.5 Mg/3 Ml Vial.Neb.) 2.5 mg INHALATION Q4H PRN PRN Reason: Asthma Cyclobenzaprine HCl (Cyclobenzaprine Hcl 10 Mg Tablet) 10 mg PO BID PRN PRN Reason: SPASMS Last Admin: 11/03/20 23:44 Dose: 10 mg Documented by: Escitalopram Oxalate (Escitalopram Oxalate 20 Mg Tablet) 20 mg PO DAILY [facility] Last Admin: 11/04/20 08:55 Dose: 20 mg Documented by: Sodium Chloride () 1,000 mls @ 125 mls/hr IV .Q8H SOPHIE Last Admin: 11/04/20 08:39 Dose: 125 mls/hr Documented by: Piperacillin Sod/Tazobactam (Sod 3.375 gm/ Sodium Chloride) 50 mls @ 12.5 mls/hr IV Q8 [facility] Last Admin: 11/04/20 13:20 Dose: 12.5 mls/hr Documented by: Pantoprazole Sodium 40 mg/ (Sodium Chloride) 110 mls @ 330 mls/hr IV Q24 [facility] Last Infusion: 11/04/20 11:54 Dose: Infused Documented by: Ondansetron HCl (Ondansetron 4 Mg/2 Ml Vial) 4 mg IV Q6H PRN PRN PRN Reason: NAUSEA Last Admin: 11/04/20 08:54 Dose: 4 mg Documented by: Oxycodone HCl (Oxycodone 5 Mg Tablet) 10 mg PO Q4H PRN PRN PRN Reason: Pain Score 6-10 Last Admin: 11/04/20 13:07 Dose: 10 mg Documented by: Sodium Chloride (0.9% Saline Lock 10 Ml Syringe) 10 - 40 ml IV UD PRN PRN Reason: SALINE FLUSH Last Admin: 11/04/20 08:55 Dose: 20 ml Documented by: Discharge Diet: Light diet - advance as tolerated Discharge Activity: Return to Normal Activity Home Medications: Medications to take at Discharge Albuterol Sulfate [Ventolin Hfa] 2 inhaler PO PRN PRN 03/06/17 Escitalopram Oxalate [Lexapro] 20 mg PO DAILY 03/06/17 Pantoprazole Sodium [Protonix] 40 mg PO DAILY 03/06/17 cycloBENZAPRine HCl [Flexeril] 10 mg PO BID PRN 03/06/17 Primary Care Physician: Ac Johnson III, MD [Primary Care Provider] - Please Follow Up With: Cosme Zapata MD - [phone] When: 1 week Disposition: Home Patient Condition:: Stable Medical Necessity - Tobacco Use Smoking Status: Former smoker Meaningful Use Info Meaningful Use Diagnoses (Choose all that apply): None applicable Inpatient E&M: 84128 Disch Hosp
[2020-11-04 16:54] LABS: Hep C Antibodies <0.1 s/co ratio (0.0-0.9)
== END 2020-11-04 18:02 | disposition home or self-care (01) | DRG 446 ==
LOC: ED 22:23 → PCU 22:39 → MS3 11-03 22:57
PROVIDERS: Admitting Provider Surgery; Emergency Provider Emergency Medicine; PCP Family Medicine; Visit Provider Surgery
PROC: 0DJ08ZZ Inspection of Upper Intestinal Tract, Via Natural or Artificial Opening Endoscopic (ICD-10-PCS; CPT 43235; principal; 2020-11-03 11:30)
PROC: 0F798DZ Dilation of Common Bile Duct with Intraluminal Device, Via Natural or Artificial Opening Endoscopic (ICD-10-PCS; CPT 43260; 2020-11-03 11:30)
DX: K80.63 Calculus of gallbladder and bile duct with acute cholecystitis with obstruction (principal); K44.9 Diaphragmatic hernia without obstruction or gangrene; G89.29 Other chronic pain; R13.10 Dysphagia, unspecified; I10 Essential (primary) hypertension; J45.909 Unspecified asthma, uncomplicated; F32.9 Major depressive disorder, single episode, unspecified; Z88.5 Allergy status to narcotic agent; Z79.899 Other long term (current) drug therapy; Z87.891 Personal history of nicotine dependence
CPT/HCPCS: 36415; 74177; 74328; 76000; 76705; 80053; 80074; 82150; 83690; 85025; 87426; 93005; 99251; 99284; 99406; J7030; J7120; Q9967; A4216; G0463; J2405

== ENCOUNTER 2020-12-01 09:53 | Day surgery (SDC) | payer MEDICARE, MEDICAID, SELFPAY ==
[2020-11-11 10:02] VITALS: BMI 29.9
[2020-12-01] VITALS (9 sets, daily range): BP systolic 103–126; BP diastolic 20–77; PULSE 53–78; RESP 16; TEMP 36.1–36.9; O2SAT 92–100; BMI 31.4
--- NOTE | 2020-12-01 | GALL_PTH ---
PATIENT: CYN CRISTINA LOC: [facility] [place] U#:[id number] AGE/SX: 40/M ROOM: RE12/01/[address]: Dr. Cosme Zapata MD : 1980 BED: DIS: 12/01/2020 SPEC #: [id number] RECD: 12/01/20 13:37 STATUS: DAVID REIngrid #: [id number] SAMIRA: 12/01/20 00:[address]: Cosme Zapata DEPT: SURGICAL PATHOLOGY RECD BY: Mike Harris ENTERED: 12/02/20 07:30 SP TYPE: THOMAS PISANO DR: Dr. Christian Byrd MD Tissues: Gallbladder, NOS Procedures: Surgery Specimen Level III HEADER OPERATION: Laparoscopic cholecystectomy with IOC PRE-OP DIAGNOSIS: Cholecystitis TISSUE SUBMITTED: Gallbladder MICROSCOPIC DIAGNOSIS Gallbladder, cholecystectomy: Acute and chronic cholecystitis and cholelithiasis. AM:jose 12/03/2020 MICROSCOPIC DESCRIPTION Slides are reviewed. GROSS DESCRIPTION Received is one container labeled with the patient's name and designated gallbladder. The specimen consists of a gallbladder measuring 10.5 cm in length and up to 2.5 cm in diameter. The external surface is pink-person, smooth and glistening for the most part. Focally it is granular, hemorrhagic and contains cautery artifact. The gallbladder contains green-yellow bile and yellowish-green mulberry stones measuring in aggregate 4 x 3 x 1 cm and 0.3 to 1.2 cm in greatest dimension. The mucosa is bile-stained and without any mass lesions. The gallbladder wall measures up to 0.2 cm in thickness. Block Mason sections from the gallbladder and the cystic duct are submitted in one cassette. / SJ:jose 12/02/20 TC:2 [facility]: [id number]
--- NOTE | 2020-12-01 | GALL_PTH ---
PATIENT: CYN CRISTINA [place]: [facility] [place] U[place][id number] AGE/SX: 40/M ROOM: RE12/01/[address]: Dr. Cosme Zapata MD : 1980 BED: DIS: 12/01/2020 SPEC #: [id number] RECD: 12/01/20 13:37 STATUS: DAVID REIngrid #: [id number] SAMIRA: 12/01/20 00:[address]: Cosme Zapata DEPT: SURGICAL PATHOLOGY RECD BY: Mike Harris ENTERED: 12/02/20 07:30 SP TYPE: THOMAS PISANO DR: Dr. Christian Byrd MD Tissues: Gallbladder, NOS Procedures: Surgery Specimen Level III HEADER OPERATION: Laparoscopic cholecystectomy with IOC PRE-OP DIAGNOSIS: Cholecystitis TISSUE SUBMITTED: Gallbladder MICROSCOPIC DIAGNOSIS Gallbladder, cholecystectomy: Chronic cholecystitis and cholelithiasis. AM:jose 12/03/2020 MICROSCOPIC DESCRIPTION Slides are reviewed. GROSS DESCRIPTION Received is one container labeled with the patient's name and designated gallbladder. The specimen consists of a gallbladder measuring 10.5 cm in length and up to 2.5 cm in diameter. The external surface is pink-person, smooth and glistening for the most part. Focally it is granular, hemorrhagic and contains cautery artifact. The gallbladder contains green-yellow bile and yellowish-green mulberry stones measuring in aggregate 4 x 3 x 1 cm and 0.3 to 1.2 cm in greatest dimension. The mucosa is bile-stained and without any mass lesions. The gallbladder wall measures up to 0.2 cm in thickness. [employer] sections from the gallbladder and the cystic duct are submitted in one cassette. / SJ:jose 12/02/20 TC:2 [facility]: [id number]
[2020-12-01] MEDS: Lactated Ringers 1,000 ML 100 ML IV ×3 (10:20→14:00)
--- NOTE | 2020-12-01 10:31 | PCM.HP.BLA ---
History and Physical Date of Admission: 12/01/20 Intake Vital Signs ? 11/11/2108:36 11/11/2109:02 Height ? 5 ft 5 in Weight: ? 180 lb BMI 31.4 29.9 BP ? 105/71 Blood Pressure Location ? Rt brachial Position ? Sitting Respiration ? 16 Pulse ? 81 Pulse Source ? Monitor Temp ? 97.6 F L Temp Source ? Temporal Pulse Oximetry (%) ? 96 Oxygen Delivery Method ? room air Intake Visit Reasons:?ER F/U 11/04 Cholecystitis Chief Complaint: F/U ERCP & Discuss cholecystectomy Commercial Lending Assistant Required: No Is patient in pain?: Yes (RUQ/ epigastric) Pain scale (1-10): 5 Allergies bee venom protein (honey bee) Allergy (Verified 11/11/20 10:04) Anaphylaxishydromorphone [From Dilaudid] Allergy (Verified 11/11/20 10:04) Hivesmorphine Allergy (Verified 11/11/20 10:04) Hives Medications albuterol sulfate [Ventolin HFA] 2 inhaler PO PRN PRN 03/06/17 [History Confirmed 11/11/20] cyclobenzaprine 10 mg PO BID PRN 03/06/17 [History Confirmed 11/11/20] escitalopram oxalate 20 mg PO DAILY 03/06/17 [History Confirmed 11/11/20] amitriptyline 25 mg tablet 25 mg PO QHS? tab 11/11/20 [History Confirmed 11/11/20] aripiprazole 20 mg tablet 20 mg PO DAILY? tab 11/11/20 [History Confirmed 11/11/20] duloxetine 60 mg capsule,delayed release 60 mg PO DAILY? cap 11/11/20 [History Confirmed 11/11/20] omeprazole 20 mg capsule,delayed release 20 mg PO DAILY? cap 11/11/20 [History Confirmed 11/11/20] promethazine 25 mg tablet 25 mg PO Q6H PRN? tab 11/11/20 [History Confirmed 11/11/20] PFSH Medical History?(Updated 11/11/20 @ 10:00 by Gabby Grimes) Acid reflux Anemia Anxiety Asthma Blood in stool Cholecystitis Depression Diarrhea Dysphagia Epigastric abdominal pain Fatigue Hemorrhoids Hiatal hernia History of esophageal dilatation Hypertension Intractable nausea and vomiting Obstructive jaundice Pancreatitis, acute RUQ abdominal pain Ulcer Surgical History?(Updated 11/11/20 @ 10:08 by Gabby Grimes) History of ERCP History of esophagogastroduodenoscopy History of repair of hiatal hernia History of skin graft Hx of colonoscopy Family History?(Updated 11/11/20 @ 10:01 by Gabby Grimes) Mother Skin cancer Hx-TIA (transient ischemic attack)Father Lupus Social History?(Updated 11/11/20 @ 10:02 by Gabby Grimes) Smoking Status:? Former smoker second hand exposure:? No alcohol intake:? never substance use type:? does not use caffeine:? Yes what type of physical activity do you participate in:? walking frequency:? 3-4 times per week HPI HPI HPI: CYN CRISTINA, is a 40 M who presents to the office today for HPI HPI Surgical H&P: Yes HPI: CYN CRISTINA, is a 40 M who presents to the office today for right upper quadrant pain.? The patient has been having right upper quadrant pain for some time.? He was recently in the hospital with right upper quadrant pain and elevated liver enzymes.? Patient is continue to have right upper quadrant pain.? He says that it does radiate to his right shoulder.? It happens after eating but he also has difficulty swallowing. ROS General General: Yes fatigue; No weight change, appetite, colon cancer, breast cancer or weakness HEENT HEENT: Yes difficulty swallowing; No eye injury, eye surgery, swollen glands or hoarseness Endo Endocrine: No thyroid disease, diabetes mellitus, thyroid cancer, Hair loss, heat intolerance or cold intolerance Skin Skin: No rash or changing moles Musc Musculoskeletal: No back problems, arthritis, rheumatoid arthritis, gout or joint pain Cardio Cardiovascular: No murmur, pacemaker, heart disease, atrial fibrillation, high blood pressure, heart attack, heart stent, palpitations, shortness of breat with exertion or chest pain Psych Psychiatric: Yes depression and anxiety; No hearing voices Resp Respiratory: No shortness of breath, No sleep apnea, No cough, No COPD, No asthma, No emphysema and No wheezing Gastro Gastrointestinal: Yes abdominal pain, Yes nausea or vomiting, Yes diarrhea, No constipation, Yes blood in stool, Yes acid reflux, Yes hemorrhoids, Yes ulcers, Yes gallbladder problem and Yes black,tarry stools Tyler Hematologic: No blood thinners, No blood disorders, No bleeding, Yes anemia and No blood clots Neuro Neurologic: No numbness, No tingling and No weakness Exam Const General: cooperative Orientation: alert and oriented x3 Resp Effort & Inspection: normal respiratory effort Auscultation: clear to auscultation bilaterally Cardio Rate: regular rate Rhythm: regular rhythm Heart Sounds: no murmurs GI Inspection: non-distended Palpation: soft and tender in the RUQ Assessment and Plan Assessment and Plan (1) Cholecystitis: ?Status:?Acute (2) Pancreatitis, acute: ?Status:?Acute ?Qualifiers: ?Acute pancreatitis complication:?unspecified??Pancreatitis type:?unspecified pancreatitis type? Qualified Code(s):?K85.90 - Acute pancreatitis without necrosis or infection, unspecified (3) Intractable nausea and vomiting: ?Status:?Acute (4) RUQ abdominal pain: ?Status:?Acute (5) Epigastric abdominal pain: ?Status:?Acute ?Plan - Dr. Cosme Zapata MD: The patient has been having nausea as well as pain with eating and right upper quadrant pain.? He is scheduled for EGD with dilation soon for his dysphagia.? The patient has had multiple stomach surgeries.? He had recently been admitted and had an ultrasound which showed stones in the gallbladder.? His liver enzymes were elevated and he had an ERCP which did not show any stones in the duct.? The patient was then tolerating a diet and wanted to go home.? He returns with continued right upper quadrant pain.? I did offer the patient laparoscopic cholecystectomy as I do believe that the gallbladder may be the cause of his pain.? I informed him that it may not be the cause of his pain and there is a possibility that he may still have pain after surgery.? I discussed surgery with him in detail. I discussed the procedure in detail with the patient.? I discussed the risks, benefits, and alternatives of the procedure.? I discussed the risks including but not limited to bleeding, infection, injury to surrounding organs such as the liver, bile duct, bowels.? I did discuss the possibility of having to convert to an open procedure as well as the possibility that if any injuries occurred this may necessitate further surgery at a tertiary care center.? I explained the increased risk of surgery due to his multiple prior abdominal surgeries.? There is also increased risk of having to convert to open surgery. Cosme Zapata MD Pager: [facility] [address] [place] [address], [address] [place] [address] Office: I have re-examined the patient. There are no clinical changes since date of exam.
[2020-12-01] MEDS: Cefotetan 2 GM in 0.9% NS 100 ML IV (11:28)
--- NOTE | 2020-12-01 11:35 | RAD_ITS ---
STUDY: INTRAOPERATIVE CHOLANGIOGRAM REASON FOR EXAM: Male, 40 years old. Cholecystectomy RADIATION DOSAGE (If Supplied By Facility): CTDIvol = ( ) mGy, DLP = ( ) mGycm. Individualized dose optimization techniques were used for this CT.? FLUOROSCOPY TIME (if supplied): ( 07 ) seconds, a cine loop was created using fluoroscopy TECHNIQUE: After cholecystectomy, the cystic duct remnant was cannulized by Dr. Zapata, and contrast injected COMPARISON: None. FINDINGS: Contrast injected into the cystic duct remnant flows into the common bile duct. There is no extravasation of contrast outside the lumen of the CBD. No retained stone noted. Free flow contrast is noted into the duodenum. RAD/Cholangiogram/ O R,Initial IMPRESSION: Normal intraoperative cholangiogram Electronically Signed: Travis Hanley MD at 12:45 EDT , Service support ,
[2020-12-01] MEDS: Bupivacaine 0.25%-Epi/Pf 1:200,000 10 ML (12:00)
--- NOTE | 2020-12-01 12:44 | PCM.OPRPT ---
Problems Associated Problem List Diagnoses (1) Cholecystitis: Report of Operation Date of Procedure: 12/01/20 Pre-Operative Diagnosis: Cholelithiasis and abdominal pain Post-Operative Diagnosis: Same Surgery/Procedure Performed:: Laparoscopic cholecystectomy with cholangiogram Specimen's removed: Gallbladder and contents Description of Procedure: After obtaining informed consent patient was brought back to the operating room. General anesthesia was induced. The abdomen was prepped and draped in usual sterile fashion. A small midline incision was made superior to the umbilicus and deepened to the level of fascia. The fascia was elevated and incised. Next the peritoneum was elevated and incised in the same fashion. Finger sweep was performed and the Chiu trocar was placed into the abdomen. The balloon was inflated. The abdomen was inflated to 15 mmHg. Next a camera was introduced into the abdomen and the abdomen was inspected. Next under direct visualization three 5-mm ports were placed one subxiphoid and 2 subcostal. Next the gallbladder was elevated and retracted toward the right shoulder. The peritoneum was stripped from the gallbladder. The infundibulum was located and retracted laterally. Next the triangle of Calot was dissected and the cystic duct and cystic artery were identified. Cholangiograms were performed. A small incision was made in the right upper quadrant and a Ranfac catheter was placed through this incision into the abdomen under direct visualization. The proximal cystic duct was clipped and a small haily was made the cystic duct and the Ranfac catheter was placed into the cystic duct and a clamp was placed over this. It was flushed easily. Under fluoroscopy contrast was instilled into the gallbladder and the common duct, cystic duct as well as proximal hepatic ducts were identified. There was good filling of the duodenum. There were no filling defects noted in the common bile duct. The clip was removed as well as the catheter and the infundibulum was grasped once more. Three hemolock clips were placed across the cystic duct. The cystic duct was then divided leaving 2 clips on the stump. The cystic artery was clipped and divided in the same fashion. The hook cautery was then used to take the gallbladder off of the gallbladder bed. Hemostasis was obtained. Gallbladder fossa was irrigated and no active bleeding or bile leakage was noted. Next the camera was introduced in the subxiphoid port. An Endopouch bag was placed through the umbilical port and the gallbladder was placed into it. The gallbladder was then removed through the umbilical incision. The camera was then reinserted through the umbilical port. The gallbladder fossa was inspected once more and noted to be hemostatic with no leaking bile. The abdomen was suctioned dry. The 5 mm ports were removed under direct visualization. The umbilical port was then removed and the air was removed from the abdomen. Next using an 0 Vicryl suture the umbilical fascia was closed in a [id number] fashion. The umbilical port site was irrigated local anesthetic was administered to all the incisions. All the incisions were closed with interrupted subcuticular 4-0 Monocryl sutures followed by Steri-Strips and dressings. The patient was awoken and taken to PACU in stable condition. Admit VTE Documentation VTE Mechan Device Prophylaxis: SCD's
--- NOTE | 2020-12-01 12:46 | EX.PCM.DISCH ---
Discharge Instructions Procedure Gallbladder Diet Discharge Diet: Light diet - advance as tolerated Activity Discharge Activity: May Not Drive (for 2-3 days or while taking narcotic pain medications.) and - (Do not drive, work heavy equipment or sign legal documents for 24 hours.) May shower in (days): 1 Lifting Restrictions: 20 lbs for 2 weeks Additional Activity Instructions:: Pain medication may cause nausea. You should typically eat light foods as you take your pain medications. Pain medication may also cause constipation. If this is a problem for you, please discuss with your doctor. Dressing / Incision Call your doctor if your incision/area has: Continuous Slow Oozing, Sudden Increased Bleeding, Increased Pain/ Swelling, Increased Redness and Foul Smelling Discharge Call your doctor if you observe: Fever of 101 or Higher Suture Line Care: Avoid Pulling/Pushing and Avoid Pinching/Bending Additional Dressing/Incision Instructions:: Leave operative bandaids on for 2 days. When you remove dressing, leave Steri-Strips on until your follow-up appointment, or until the Steri-Strips fall off on their own. Follow Up Care Please Follow Up With: Cosme Zapata MD When: Please call to schedule 2 week follow up appointment. [phone] Test Results: Test results from this visit will be discussed in further detail at your follow-up appointment, if applicable. Discharge Plan Admission Attending Provider: Cosme Zapata Primary Care Provider: Christian Byrd Discharge Orders/Prescriptions Prescriptions: New oxycodone-acetaminophen [Endocet] 5-325 mg tablet 1 tab PO Q4H PRN (Reason: pain) 5 Days Qty: 30 RF: 0 No Action promethazine 25 mg tablet 25 mg PO Q6H PRN (Reason: Nausea) RF: 0 aripiprazole [Abilify] 20 mg tablet 15 mg PO DAILY RF: 0 duloxetine [Cymbalta] 60 mg capsule,delayed release(DR/EC) 60 mg PO DAILY RF: 0 omeprazole 20 mg capsule,delayed release(DR/EC) 20 mg PO DAILY RF: 0 amitriptyline 25 mg tablet 25 mg PO QHS RF: 0 cyclobenzaprine 10 MG tablet 10 mg PO BID PRN (Reason: Spasms) RF: 0 albuterol sulfate [Ventolin HFA] 18 GM HFA aerosol inhaler 2 inhaler PO PRN PRN (Reason: Asthma) RF: 0 escitalopram oxalate [Lexapro] 20 MG tablet 20 mg PO DAILY RF: 0 Referrals / Follow Up: Christian Byrd MD [Primary Care Provider] - Disposition Disposition (needs filled in before D/C Order can be placed): Home, self care
== END 2020-12-01 15:10 | disposition home or self-care (01) ==
LOC: SDC 09:53 → AC 09:54
PROVIDERS: PCP Family Medicine; Referring Provider Surgery; Visit Provider Surgery
PROC: (CPT 47610; principal; 2020-12-01 11:15)
DX: K80.00 Calculus of gallbladder with acute cholecystitis without obstruction (principal); K85.90 Acute pancreatitis without necrosis or infection, unspecified; K21.9 Gastro-esophageal reflux disease without esophagitis; I10 Essential (primary) hypertension; Z20.822 Contact with and (suspected) exposure to COVID-19; Z79.899 Other long term (current) drug therapy; Z87.891 Personal history of nicotine dependence
CPT/HCPCS: 00790; 47563; 74300; 76000; 87426; 88304; C9803; J7120; J2405